=== PATIENT | female | born 1985 | race Caucasian/White ===

== ENCOUNTER 2025-01-04 11:17 | Emergency (ER) | payer OTHER, SELFPAY ==
--- NOTE | 2025-01-04 11:15 | DI.US_ITS ---
Exam(s) US ABDOMEN LIMITED EXAM: US ABDOMEN LIMITED CLINICAL HISTORY: Regarding pain TECHNIQUE: Ultrasound abdomen performed using standard protocol. COMPARISON: US POCUS EXAM from 01/04/2025 FINDINGS: LIVER: Normal size. Normalechogenicity. No focal liver lesions are seen.. GALLBLADDER: No evidence of cholelithiasis. The gallbladder is contracted. Wall thickening cannot be evaluated. No gross evidence of wall thickening. No pericholecystic fluid identified. LIM'S SIGN: Negative. BILIARY SYSTEM: No intrahepatic or extrahepatic biliary ductal dilation. RIGHT KIDNEY: Normal size. No evidence of renal calculi. No evidence of hydronephrosis. No suspicious renal mass. No cyst identified. PANCREAS: Normal where visualized. ABDOMINAL AORTA AND IVC: Visualized portions normal caliber. ASCITES: None seen. The right lower quadrant was scanned. The appendix not identified. No free fluid or focal collectio n. IMPRESSION: Gallbladder is contracted. Exam is otherwise unremarkable. DATA REPOSITORY:
--- NOTE | 2025-01-04 11:20 | W.ED.GENAD ---
Discharge Plan Disposition Patient Disposition: Against Medical Advice Discharge Details Clinical Impression: Right upper quadrant pain Primary Care Provider: Unknown,Unknown ED Provider: Juan Pablo Curtis [place] Meds and New Rx's Prescriptions: New cephalexin 250 mg capsule 250 mg PO QID 5 Days Qty: 20 0RF Continued Neupro 1 mg/24 hour patch 24 hour 1 mg transdermal DAILY celecoxib 100 mg capsule 100 mg PO DAILY topiramate 50 mg tablet 50 mg PO BID loperamide [Anti-Diarrheal (loperamide)] 2 mg tablet 2 mg PO QID PRN hyoscyamine 0.15 mg tablet 0.375 mg PO DAILY Discharge Instructions Instructions: Abdominal pain Additional Instructions: You were seen in the emergency room for your abdominal pain. You were advised to have a CAT scan but you left AGAINST MEDICAL ADVICE. As we discussed if you develop worsening pain fevers or cannot eat or drink as a result of nausea or vomiting please return to the emergency department. Your blood work shows that your creatinine was 1.1. Your urinalysis showed no clear signs of infection however you are receiving antibiotics that you should take as directed. Given your symptoms you are being treated for urinary tract infection. For your pain please take medications as follows: 1. Take acetaminophen (Tylenol), 1,000 mg (two 500 mg tabs) every 6 hours [2. Take ibuprofen (Advil), 400 mg every 6 hours.] HPI General Date/Time Provider Initiated Documentation: 01/04/25 11:20. HPI Narrative: MDM This is a quite well-appearing afebrile and not tachycardic 39-year-old female with right lower quadrant tenderness and gallbladder wall thickening with Olivarez sign concerning for acute cholecystitis for which patient will undergo formal radiology ultrasound. Appendicitis is certainly on the differential so if the patient's ultrasound is reassuring we will order CT scan of the patient's abdomen. No pain out of proportion to suggest necrotizing soft tissue infection. No history of nephrolithiasis to suggest ureterolithiasis. No rash to abdomen to suggest zoster. No fevers nor left lower quadrant tenderness to suggest diverticulitis. Patient does have dysuria and so I considered pyelonephritis though patient has not had fevers. She has no history of inflammatory bowel disease. She had a bowel movement this morning. In the absence of vomiting so I am not suspicious for small bowel obstruction. Based on patient's age and her lack of chest pain and vomiting my suspicion is low for ACS I did not obtain an EKG given patient's abdominal tenderness. She is not short of breath not having chest pain to suggest PE and she is PERC negative so I did not send a D-dimer. No cough nor fevers to suggest pneumonia. I offer the patient ketorolac but she declined. No abnormal vaginal discharge to suggest PID. No lower quadrant pain or vomiting to suggest ovarian torsion. 12:05 PM Comprehensive metabolic panel notable for elevated creatinine. Reassuring LFTs. No acute electrolyte abnormalities. No prior for comparison. Lipase not consistent with pancreatitis. CBC lacks anemia thrombocytopenia and leukocytosis. Urine negative. 3:30 PM Late charting due to patient care. I met with the patient. I explained that her ultrasound did not clearly show acute cholecystitis. Given her tenderness I advised her that appendicitis is on the differential and that I would like to complete a CT abdomen pelvis. Patient declined and noted concerns about the radiation. I advised her that the risk of radiation was relatively low and that if she had appendicitis at this would be a dangerous surgical diagnosis for which we would initiate treatment. I did obtain a urinalysis which was nitrite negative but did show some proteinuria. Given her creatinine of 1.2 I added on CK which was reassuring against rhabdomyolysis. Given her symptoms of dysuria we will treat empirically with 5-day course of cephalexin 250 mg 4 times daily. Patient requested discharge. 1. I explained the current situation and condition to the patient. 2. I explained the recommended treatment for this condition ?CT abdomen pelvis with IV contrast to assess for appendicitis 3. I explained the risk of not having the recommended treatment ?untreated appendicitis perforation sepsis and 4. The patient understands this information has no questions, and repeated back this information. 5. The patient states that they need to leave and will return if her symptoms worsen do not improve 6. Mental status is lucid and the patient has decision-making capacity. 7. Patient is withdrawn consent for care HPI This is a previously healthy 39-year-old female right emergency department via private vehicle in the setting of right upper quadrant pain. Patient notes that she has had stabbing right upper quadrant pain for the past 1 to 2 days. She has been nauseous but has not been vomiting. She endorses dysuria. She has had no fevers. Surgical history significant for remote tubal ligation. She denies any chest pain shortness of breath. She has no history of ureteral lithiasis. She denies any vaginal bleeding and abnormal vaginal discharge. She had a bowel movement this morning that was reportedly normal for her. She has no history of inflammatory bowel disease and specifically denies ulcerative colitis and Crohn's disease. She has had no recent travel. She is not a diabetic. Exam General: Well-appearing in no acute distress speaking in complete sentences. Head: Normocephalic, atraumatic. Eye: Extraocular eye movements intact. No conjunctival injection. No scleral icterus. Ear, nose, mouth, throat: Grossly normal inspection. Normal voice, handling secretions normally. Neck: Trachea midline. Cardiovascular: Well-perfused distal extremities. Respiratory: Nonlabored respiration. Gastrointestinal: Nondistended abdomen. Right upper quadrant tenderness positive Olivarez sign. No rebound. No guarding. Nonperitoneal. Musculoskeletal: No edema. Moving all 4 extremities spontaneously. Skin: Normal for age and race, grossly normal temperature and turgor. No acute rash. Neurologic: Alert and appropriate, no apparent acute deficits. Psychiatric: Mood and manner are appropriate. Grooming and personal hygiene are appropriate. Related Data Home Medications ?Medication ?Instructions ?Recorded ?Confirmed celecoxib 100 mg capsule 100 mg PO DAILY 01/04/25 01/04/25 cephalexin 250 mg capsule 250 mg PO QID 5 days #20 caps 01/04/25 hyoscyamine 0.15 mg tablet 0.375 mg PO DAILY 01/04/25 01/04/25 loperamide 2 mg tablet 2 mg PO QID PRN 01/04/25 01/04/25 (Anti-Diarrheal (loperamide)) rotigotine 1 mg/24 hour 1 mg transdermal DAILY 01/04/25 01/04/25 transdermal 24 hour patch (Neupro) topiramate 50 mg tablet 50 mg PO BID 01/04/25 01/04/25 Previous Rx's ?Medication ?Instructions ?Recorded cephalexin 250 mg capsule 250 mg PO QID 5 days #20 caps 01/04/25 Allergies Allergy/AdvReac Type Severity Reaction Status Date / Time pseudoephedrine (From Allergy Severe Unknown Verified 01/04/25 12:18 Sudafed) buspirone AdvReac Mild Nausea Verified 01/04/25 12:18 Medical Decision Making Quality:SDOH Health Related Social Needs: No Data to Display PFSH All Active Problems (Updated 01/04/25 @ 14:04 by Juan Pablo Curtis MD) Right upper quadrant pain (Acute) Social History Smoking/Tobacco Use Status: Never Smoking risk assessment performed?: Yes Alcohol Intake: current Alcohol Intake frequency: holidays/special occasions only POCUS Exam (ED) Limited Gallbladder Exam DATE OF EXAM: 01/04/25 TIME OF EXAM: 12:12 PROVIDER THAT PERFORMED THE STUDY: Juan Pablo Curtis REASON FOR VISIT: Abdominal pain VISUALIZED STRUCTURES: Gallbladder PERTINENT FINDINGS/IMPRESSION: Thickened gallbladder wall; No Cholecystitis, No gallstones and No Pericholecystic fluid DIFFERENTIAL DIAGNOSIS: Gallbladder wall thickening sonographic Olivarez's. No cholelithiasis nor pericholecystic fluid. Exam complete
[2025-01-04 11:24] VITALS: BP 138/91; PULSE 78; RESP 12; TEMP 36.6; O2SAT 99
[2025-01-04 11:47] LABS: Abs Immature Grans 0.02 10^3/uL (0.0-0.06); Absolute Basophil Count 0.07 10^3/uL (0.0-0.2); Absolute Eosinophil Count 0.16 10^3/uL (0.0-0.7); Absolute Lymphocyte Count 3.53 10^3/uL (1.2-3.4); Absolute Monocyte Count 0.82 10^3/uL (0.1-0.8); Absolute Neutrophil Count 3.52 10^3/uL (1.2-6.7); Basophils % 0.9 %; HCT 37.6 % (36.0-46.0); HGB 12.5 g/dL (11.2-15.7); Immature Grans % 0.2 %; Lymphocytes % 43.5 %; MCHC 33.2 % (32.0-36.0); MCV 90 fL (80-95); MPV 9.8 fL (8.0-11.0); Monocytes % 10.1 %; Neutrophils % 43.3 %; Platelet Count 324 10^3/uL (130-400); RBC 4.17 10^6/uL (3.93-5.22); RDW 13.5 % (11.7-14.6); RDW-SD 45.1 fL; WBC 8.12 10^3/uL (4.4-10.8)
[2025-01-04 12:00] LABS: ALT 18 U/L (14-59); AST 10 U/L (15-37); Albumin 3.9 g/dL (3.4-5.0); Alkaline Phosphatase 59 U/L (46-116); Anion Gap 9.7 mmol/L (3-11); BUN 21 mg/dL (7-18); Bilirubin, Total 0.4 mg/dL (0.2-1.0); CO2 25.3 mmol/L (21.0-32.0); CREATININE 1.2 mg/dL (0.55-1.02); Chloride 108 mmol/L (98-107); Estimated GFR 58.32 (mL/min/1.73m2); Glucose 93 mg/dL (74-106); Lipase 40 U/L (<78); Potassium 3.5 mmol/L (3.5-5.1); Sodium 143 mmol/L (136-145); Total Protein 7.4 g/dL (6.4-8.2)
[2025-01-04 13:40] LABS: Bilirubin Negative (Negative); Blood Negative (Negative); Clarity Clear (Clear); Glucose Negative (Negative); Ketones Negative (Negative); Leukocyte Esterase Negative (Negative); Nitrite Negative (Negative); Specific Gravity 1.015 (1.005-1.025); pH 8.5 (5-8)
[2025-01-04 13:42] LABS: Lab Add On Test DONE
[2025-01-04 13:52] LABS: Creatine Kinase 54 U/L (26-192)
[2025-01-04 14:11] LABS: C & S Indicated? No; Crystals Many Amorphous HPF (Negative)
[2025-01-04] MEDS: Ondansetron O.D.T. 4 MG TABEF, 3 TABS/BTL PO (14:37)
[2025-01-04 14:38] VITALS: BP 161/86; PULSE 56; RESP 21; TEMP 37.1; O2SAT 100
== END 2025-01-04 15:22 | disposition left against medical advice (07) ==
PROVIDERS: Emergency Provider Emergency Medicine
DX: R10.11 Right upper quadrant pain (principal); Z53.29 Procedure and treatment not carried out because of patient's decision for other reasons
CPT/HCPCS: 36415; 76705; 80053; 81025; 82550; 83690; 99284; 81003; 81015; 85025; 99283